=== PATIENT | male | born 1960 | race Caucasian/White ===

== ENCOUNTER 2017-09-19 10:46 | Emergency (ER) | payer OTHER ==
[~2017-09-19] VITALS: Ht 180.3 cm; Wt 66.4 kg
--- OUTSIDE RECORDS SUMMARY | ~2017-09-19 | XMS ---
Demographics + + + | Address | [address] | | | [address] | | | [place] [address] | + + + | Preferred Language | Unknown | + + + | Marital Status | Unknown | + + + | Restorationist Affiliation | Unknown | + + + | Race | Unknown | + + + | Ethnic Group | Unknown | + + + Author + + + | Author | [facility] | + + + | Organization | [facility] | + + + | Address | [address] | | | [place] [address] | + + + | Phone | | + + + Care Team Providers + + + + | Care Typecasting Machine Operator Name | Role | Phone | + + + + Unavailable | Unavailable | + + + + PROBLEMS +---------+ + + +--------+ + + | Type | Condition | ICD9-CM | [id number] | Onset | Condition | SNOMED | | | | Code | Code | Dates | Status | Code | +---------+ + + +--------+ + + | Problem | Poor oral | K08.8 | | | Active | [id number] | | | hygiene | | | | | | +---------+ + + +--------+ + + | Problem | Low back | | M54.5 | | Active | 903090856 | | | pain | | | | | | +---------+ + + +--------+ + + | Problem | Decreased | H91.93 | | | Active | 64586153 | | | hearing of | | | | | | | | both ears | | | | | | +---------+ + + +--------+ + + | Problem | Alcohol | F10.21 | | | Active | | | | dependence | | | | | | | | in | | | | | | | | remission | | | | | | +---------+ + + +--------+ + + | Problem | Tobacco | | Z72.0 | | Active | 860328202 | | | use | | | | | | +---------+ + + +--------+ + + | Problem | Depression | F32.9 | | | Active | 68081453 | | | , major | | | | | | +---------+ + + +--------+ + + | Problem | Lung | J85.2 | | | Active | 03225516 | | | abscess | | | | | | +---------+ + + +--------+ + + ALLERGIES Unknown Allergies SOCIAL HISTORY No smoking Hx information available PLAN OF CARE VITAL SIGNS MEDICATIONS Unknown Medications RESULTS No Results PROCEDURES No Known procedures IMMUNIZATIONS No Known Immunizations"
--- OUTSIDE RECORDS SUMMARY | ~2017-09-19 | XMS ---
Demographics + + + | Address | [address] | | | [place] [address] | + + + | Preferred Language | Unknown | + + + | Marital Status | Unknown | + + + | Samaritan Affiliation | Unknown | + + + | Race | Unknown | + + + | Ethnic Group | Unknown | + + + Author + + + | Author | [facility] | + + + | Organization | [facility] | + + + | Address | [address] | | | [place] [address] | + + + | Phone | | + + + Care Team Providers + + + + | Care Heel Varnisher Name | Role | Phone | + + + + Unavailable | Unavailable | + + + + PROBLEMS + + + + + + + + | Type | Condition | ICD9-CM | [id number] | Onset | Condition | SNOMED | | | | Code | Code | Dates | Status | Code | + + + + + + + + | Assessment | Lung | J85.2 | | 11 April, | Active | [id number] | | | abscess | | | 2017 | | | + + + + + + + + | Problem | Decreased | H91.93 | | | Active | 85337268 | | | hearing of | | | | | | | | both ears | | | | | | + + + + + + + + | Problem | Depression | F32.9 | | | Active | 75255303 | | | , major | | | | | | + + + + + + + + | Problem | Tobacco | | Z72.0 | | Active | 833255020 | | | use | | | | | | + + + + + + + + | Problem | Poor oral | K08.8 | | | Active | 408506794 | | | hygiene | | | | | | + + + + + + + + | Problem | Lung | J85.2 | | | Active | 98828788 | | | abscess | | | | | | + + + + + + + + | Problem | Alcohol | F10.21 | | | Active | | | | dependence | | | | | | | | in | | | | | | | | remission | | | | | | + + + + + + + + ALLERGIES Unknown Allergies SOCIAL HISTORY No smoking Hx information available PLAN OF CARE VITAL SIGNS MEDICATIONS Unknown Medications RESULTS No Results PROCEDURES No Known procedures IMMUNIZATIONS No Known Immunizations"
--- OUTSIDE RECORDS SUMMARY | ~2017-09-19 | XMS ---
Demographics + + + | Address | [address] | | | [address] | | | [place] [address] | + + + | Preferred Language | Unknown | + + + | Marital Status | Unknown | + + + | Presybeterian Affiliation | Unknown | + + + | Race | Unknown | + + + | Ethnic Group | Unknown | + + + Author + + + | Author | [facility] | + + + | Organization | [facility] | + + + | Address | [address] | | | [place] [address] | + + + | Phone | | + + + Care Team Providers + + + + | Care Mental Health Associate Name | Role | Phone | + + + + Unavailable | Unavailable | + + + + PROBLEMS + + + + + + + + | Type | Condition | ICD9-CM | [id number] | Onset | Condition | SNOMED | | | | Code | Code | Dates | Status | Code | + + + + + + + + | Problem | Poor oral | K08.8 | | | Active | [id number] | | | hygiene | | | | | | + + + + + + + + | Assessment | Lung | J85.2 | | 24 April, | Active | 35889770 | | | abscess | | | 2017 | | | + + + + + + + + | Problem | Low back | | M54.5 | | Active | 028225956 | | | pain | | | | | | + + + + + + + + | Problem | Decreased | H91.93 | | | Active | 51997959 | | | hearing of | | [...] | | Z72.0 | | Active | 750198950 | | | use | | | | | | + + + + + + + + | Problem | Depression | F32.9 | | | Active | 39449507 | | | , major | | | | | | + + + + + + + + | Problem | Lung | J85.2 | | | Active | 37213047 | | | abscess | | | | | | + + + + + + + + ALLERGIES + + + + +---------+ | Substance | Reaction | Event Type | Date | Status | + + + + +---------+ | N.K.Jose AlfredoA. | Unknown | Non Drug | April, | Unknown | | | | Allergy | | | + + + + +---------+ SOCIAL HISTORY No smoking Hx information available PLAN OF CARE VITAL SIGNS + + + + | Height | 77 in | 2017-04-24 | + + + + | Weight | 164.2 lbs | 2017-04-24 | + + + + | BMI | 19.47 kg/m2 | 2017-04-24 | + + + + | Temperature | 98.6 degrees Fahrenheit | 2017-04-24 | + + + + | Heart Rate | 96 /min | 2017-04-24 | + + + + | Blood pressure systolic | 127 mm Hg | 2017-04-24 | + + + + | Blood pressure diastolic | 72 mm Hg | 2017-04-24 | + + + + MEDICATIONS + + + + + + + +--------+ | Medicati | Instruct | Dosage | Frequenc | Start | End Date | Duration | Status | | on | ions | | y | Date | | | | + + + + + + + +--------+ | Centrum | Orally | 1 tablet | 24h | | | | Active | | - | Daily | | | | | | | + + + + + + + +--------+ | Nicotine | Transder | 1 patch | 24h | 24 April, | | | Active | | 21 | mal Once | to skin | | 2017 | | | | | MG/24HR | a day | | | | | | | + + + + + + + +--------+ | Augmenti | Orally | 1 tablet | 12h | | | | Active | | n 875 mg | Twice a | | | | | | | | | day | | | | | | | + + + + + + + +--------+ RESULTS No Results PROCEDURES + + + + + | Procedure | Date Ordered | Related Diagnosis | Body Site | + + + + + | Est Level III | April 24, 2017 | | | | Intermediate | | | | + + + + + IMMUNIZATIONS No Known Immunizations"
--- OUTSIDE RECORDS SUMMARY | ~2017-09-19 | XMS ---
Demographics + + + | Address | [address] | | | [address] | | | [place] [address] | + + + | Preferred Language | Unknown | + + + | Marital Status | Unknown | + + + | Mandaeism Affiliation | Unknown | + + + | Race | Unknown | + + + | Ethnic Group | Unknown | + + + Author + + + | Author | [facility] | + + + | Organization | [facility] | + + + | Address | [address] | | | [place] [address] | + + + | Phone | | + + + Care Team Providers + + + + | Care Forecast Analyst Name | Role | Phone | + + + + Unavailable | Unavailable | + + + + PROBLEMS +---------+ + + +--------+ + + | Type | Condition | ICD9-CM | [id number] | Onset | Condition | SNOMED | | | | Code | Code | Dates | Status | Code | +---------+ + + +--------+ + + | Problem | Poor oral | K08.8 | | | Active | [id number] | | | hygiene | | | | | | +---------+ + + +--------+ + + | Problem | Low back | | M54.5 | | Active | 441857215 | | | pain | | | | | | +---------+ + + +--------+ + + | Problem | Decreased | H91.93 | | | Active | 69056524 | | | hearing of | | | | | | | | both ears | | | | | | +---------+ + + +--------+ + + | Problem | Alcohol | F10.21 | | | Active | 188341042 | | | dependence | | | | | | | | in | | | | | | | | remission | | | | | | +---------+ + + +--------+ + + | Problem | Tobacco | | Z72.0 | | Active | 357604114 | | | use | | | | | | +---------+ + + +--------+ + + | Problem | Depression | F32.9 | | | Active | 33441244 | | | , major | | | | | | +---------+ + + +--------+ + + | Problem | Lung | J85.2 | | | Active | 84747353 | | | abscess | | | | | | +---------+ + + +--------+ + + ALLERGIES No Information SOCIAL HISTORY Never Assessed PLAN OF CARE + +---------+ | Activity | Details | + +---------+ +---+ | | +---+ + + + | Pending Test | CT Scan : Chest with IV Contrast | + + + VITAL SIGNS MEDICATIONS Unknown Medications RESULTS No Results PROCEDURES + + +--------+ + | Procedure | Date Ordered | Result | Body Site | + + +--------+ + | CT THORAX W/DYE | Aug 01, 2017 | | | + + +--------+ + IMMUNIZATIONS No Known Immunizations MEDICAL (GENERAL) HISTORY + + + + | Type | Description | Date | + + + + | Medical History | Alcoholism | | + + + + | Medical History | L ear hearing loss since | | | | 01/2011 | | + + + + | Surgical History | Rhinoplasty | 1975 | + + + + | Hospitalization History | Migueloscarmoris 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 IV | 03/22- | | | clindamycin therapy | | + + + + | Hospitalization History | [facility] Swing Bed Program: IV | 03/29/17 to 04/19/17 | | | clindamycin therapy | | | | completion | | + + + + | Hospitalization History | CT Scan of the chest: | 03/22/17 | | | Thickwalled 7.7 centimeter | | | | cavitary lesion arising | | | | from the superior segment | | | | of the left low, air-fluid | | | | level. Left paratracheal | | | | lymph node, reactive, mild | | | | enlargement | | + + + + | Hospitalization History | Ruled out active | 03/2017 | | | tuberculosis by 3 negative | | | | AFB smears. | | + + + + | Hospitalization History | T-Spot TB Negative | 03/27/2017 | + + + + | Hospitalization History | HIV 1 & 2: Negative | 03/22/2017 | + + + + | Hospitalization History | CT Scan of the chest: Left | 04/11/2017 | | | posterior upper lobe | | | | process is again noted. | | | | Much less rounded in | | | | appearance. Multiple foci | | | | of air. Size approximately | | | | 2/3 from previous and air | | | | bronchograms developing in | | | | it. No adenopathy. | | + + + +"
--- OUTSIDE RECORDS SUMMARY | ~2017-09-19 | XMS ---
Demographics + + + | Address | [address] | | | [address] | | | [place] [address] | + + + | Preferred Language | Unknown | + + + | Marital Status | Unknown | + + + | Lutheran Affiliation | Unknown | + + + | Race | Unknown | + + + | Ethnic Group | Unknown | + + + Author + + + | Author | [facility] | + + + | Organization | [facility] | + + + | Address | [address] | | | [place] [address] | + + + | Phone | | + + + Care Team Providers + + + + | Care Cane Piler Name | Role | Phone | + + + + Unavailable | Unavailable | + + + + PROBLEMS +---------+ + + +--------+ + + | Type | Condition | ICD9-CM | MKR35-HO | Onset | Condition | SNOMED | | | | Code | Code | Dates | Status | Code | +---------+ + + +--------+ + + | Problem | Poor oral | K08.8 | | | Active | [id number] | | | hygiene | | | | | | +---------+ + + +--------+ + + | Problem | Low back | | M54.5 | | Active | 511788406 | | | pain | | | | | | +---------+ + + +--------+ + + | Problem | Decreased | H91.93 | | | Active | 19565960 | | | hearing of | | | | | | | | both ears | | | | | | +---------+ + + +--------+ + + | Problem | Alcohol | F10.21 | | | Active | 450330701 | | | dependence | | | | | | | | in | | | | | | | | remission | | | | | | +---------+ + + +--------+ + + | Problem | Tobacco | | Z72.0 | | Active | 536485648 | | | use | | | | | | +---------+ + + +--------+ + + | Problem | Depression | F32.9 | | | Active | 91631944 | | | , major | | | | | | +---------+ + + +--------+ + + | Problem | Lung | J85.2 | | | Active | 02680567 | | | abscess | | | | | | +---------+ + + +--------+ + + ALLERGIES No Known Allergies SOCIAL HISTORY Never Assessed PLAN OF CARE + +---------+ | Activity | Details | + +---------+ +---+ | | +---+ + + + | Follow Up | 4 Weeks to, 6 Weeks Reason:null | + + + VITAL SIGNS + + + + | Height | 77 in | 2017-08-28 | + + + + | Weight | 155.0 lbs | 2017-08-28 | + + + + | BMI | 18.38 kg/m2 | 2017-08-28 | + + + + | Temperature | 99.6 degrees Fahrenheit | 2017-08-28 | + + + + | Heart Rate | 94 /min | 2017-08-28 | + + + + | Blood pressure systolic | 145 mm Hg | 2017-08-28 | + + + + | Blood pressure diastolic | 100 mm Hg | 2017-08-28 | + + + + MEDICATIONS + + + + +--------+ + +--------+ | Medicati | Instruct | Dosage | Frequenc | Start | End Date | Duration | Status | | on | ions | | y | Date | | | | + + + + +--------+ + +--------+ | Centrum | Orally | 1 tablet | 24h | | | | Active | | - | Daily | | | | | | | + + + + +--------+ + +--------+ RESULTS No Results PROCEDURES No Known procedures IMMUNIZATIONS No Known Immunizations MEDICAL (GENERAL) HISTORY [...] + + + | Hospitalization History | Rajan De Leon alcoholic | 02/07-02/13/11 | | | hepatitis [...]
--- OUTSIDE RECORDS SUMMARY | ~2017-09-19 | XMS ---
Demographics + + + | Address | [address] | | | [address] | | | [place] [address] | + + + | Preferred Language | Unknown | + + + | Marital Status | Unknown | + + + | Denominational Affiliation | Unknown | + + + | Race | Unknown | + + + | Ethnic Group | Unknown | + + + Author + + + | Author | [facility] | + + + | Organization | [facility] | + + + | Address | [address] | | | [place] [address] | + + + | Phone | | + + + Care Team Providers + + + + | Care Domestic Violence Counselor Name | Role | Phone | + + + + Unavailable | Unavailable | + + + + PROBLEMS +---------+ + + +--------+ + + | Type | Condition | ICD9-CM | BIO54-[id number] | Onset | Condition | SNOMED | | | | Code | Code | Dates | Status | Code | +---------+ + + +--------+ + + | Problem | Poor oral | K08.8 | | | Active | [id number] | | | hygiene | | | | | | +---------+ + + +--------+ + + | Problem | Low back | | M54.5 | | Active | 224851452 | | | pain | | | | | | +---------+ + + +--------+ + + | Problem | Decreased | H91.93 | | | Active | 31726752 | | | hearing of | | [...] | | Z72.0 | | Active | 778766623 | | | use | | | | | | +---------+ + + +--------+ + + | Problem | Depression | F32.9 | | | Active | 10940532 | | | , major | | | | | | +---------+ + + +--------+ + + | Problem | Lung | J85.2 | | | Active | 02534932 | | | abscess | | | | | | +---------+ + + +--------+ + + ALLERGIES Unknown Allergies SOCIAL HISTORY No smoking Hx information available PLAN OF CARE VITAL SIGNS MEDICATIONS Unknown Medications RESULTS No Results PROCEDURES No Known procedures IMMUNIZATIONS No Known Immunizations"
--- OUTSIDE RECORDS SUMMARY | ~2017-09-19 | XMS ---
Demographics + + + | Address | [address] | | | [address] | | | [place] [address] | + + + | Preferred Language | Unknown | + + + | Marital Status | Unknown | + + + | Anglican Affiliation | Unknown | + + + | Race | Unknown | + + + | Ethnic Group | Unknown | + + + Author + + + | Author | [facility] | + + + | Organization | [facility] | + + + | Address | [address] | | | [place] [address] | + + + | Phone | | + + + Care Team Providers + + + + | Care Online Media Buyer Name | Role | Phone | + + + + Unavailable | Unavailable | + + + + PROBLEMS +---------+ + + +--------+ + + | Type | Condition | ICD9-CM | [id number] | Onset | Condition | SNOMED | | | | Code | Code | Dates | Status | Code | +---------+ + + +--------+ + + | Problem | Poor oral | K08.8 | | | Active | 281559268 | | | hygiene | | | | | | +---------+ + + +--------+ + + | Problem | Low back | | M54.5 | | Active | 753815055 | | | pain | | | | | | +---------+ + + +--------+ + + | Problem | Decreased | H91.93 | | | Active | 05457883 | | | hearing of | | [...] | | Z72.0 | | Active | 414143550 | | | use | | | | | | +---------+ + + +--------+ + + | Problem | Depression | F32.9 | | | Active | 25866077 | | | , major | | | | | | +---------+ + + +--------+ + + | Problem | Lung | J85.2 | | | Active | 37775641 | | | abscess | | | | | | +---------+ + + +--------+ + + ALLERGIES + + + + +---------+ | Substance | Reaction | Event Type | Date | Status | + + + + +---------+ | N.K.D.A. | Unknown | Non Drug | 19 Jun, 2017 | Unknown | | | | Allergy | | | + + + + +---------+ SOCIAL HISTORY No smoking Hx information available PLAN OF CARE + +---------+ | Activity | Details | + +---------+ +---+ | | +---+ + + + | Follow Up | 3 Months Reason:null | + + + VITAL SIGNS + + + + | Height | 77 in | 2017-06-19 | + + + + | Weight | 166.4 lbs | 2017-06-19 | + + + + | BMI | 19.73 kg/m2 | 2017-06-19 | + + + + | Temperature | 98.8 degrees Fahrenheit | 2017-06-19 | + + + + | Heart Rate | 80 /min | 2017-06-19 | + + + + | Blood pressure systolic | 153 mm Hg | 2017-06-19 | + + + + | Blood pressure diastolic | 102 mm Hg | 2017-06-19 | + + + + MEDICATIONS Unknown Medications RESULTS + +--------+ + + | Name | Result | Date | Reference Range | + +--------+ + + | Sedimentation | | 2017-06-19 | | | Rate-Westergren | | | | + +--------+ + + | Sedimentation | | | | | Rate-Westergren | | | | + +--------+ + + | CRP | | 2017-06-19 | | + +--------+ + + | CRP | | | | + +--------+ + + | Comprehensive | | 2017-06-19 | | | Metabolic Panel | | | | + +--------+ + + | CBC with | | 2017-06-19 | | | Differential Count | | | | + +--------+ + + | Procalcitonin | | | | + +--------+ + + PROCEDURES + + + + + | Procedure | Date Ordered | Related Diagnosis | Body Site | + + + + + | Est Level III | June 19, 2017 | | | | Intermediate | | | | + + + + + IMMUNIZATIONS No Known Immunizations"
--- OUTSIDE RECORDS SUMMARY | ~2017-09-19 | XMS ---
Demographics + + + | Address | [address] | | | [place] [address] | + + + | Preferred Language | Unknown | + + + | Marital Status | Unknown | + + + | Congregation Affiliation | Unknown | + + + | Race | Unknown | + + + | Ethnic Group | Unknown | + + + Author + + + | Author | [facility] | + + + | Organization | [facility] | + + + | Address | [address] | | | [place] [address] | + + + | Phone | | + + + Care Team Providers + + + + | Care Train Operations Manager Name | Role | Phone | + + + + Unavailable | Unavailable | + + + + PROBLEMS + + + + + + + + | Type | Condition | ICD9-CM | RSU11-JT | Onset | Condition | SNOMED | | | | Code | Code | Dates | Status | Code | + + + + + + + + | Assessment | Screening | Z13.1 | | 05 April, | Active | [id number] | | | for | | | 2017 | | | | | diabetes | | | | | | | | mellitus | | | | | | + + + + + + + + | Assessment | Lung | J85.2 | | 05 April, | Active | 32987087 | | | abscess | | | 2016 | | | + + + + + + + + | Assessment | Screening | | Z13.220 | 05 April, | Active | 714069294 | | | cholestero | | | 2016 | | | | | l level | | | | | | + + + + + + + + | Assessment | Screening | Z13.29 | | 05 April, | Active | 108546029 | | | for | | | 2016 | | | | | hypothyroi | | | | | | | | dism | | | | | | + + + + + + + + | Problem | Decreased | H91.93 | | | Active | 16327860 | | | hearing of | | | | | | | | both ears | | | | | | + + + + + + + + | Problem | Depression | F32.9 | | | Active | 75003226 | | | , major | | | | | | + + + + + + + + | Problem | Tobacco | | Z72.0 | | Active | 437251422 | | | use | | | | | | + + + + + + + + | Problem | Poor oral | K08.8 | | | Active | 640957473 | | | hygiene | | | | | | + + + + + + + + | Problem | Lung | J85.2 | | | Active | 31240486 | | | abscess | | | [...] N.K.D.A. | Unknown | Non Drug | April, | Unknown | | | | Allergy | | | + + + + +---------+ SOCIAL HISTORY No smoking Hx information available PLAN OF CARE + +---------+ | Activity | Details | + +---------+ +---+ | | +---+ + + + | Pending Test | TSH+Free T4 | + + + | Pending Test | Comprehensive Metabolic Panel | + + + | Pending Test | Lipid Panel | + + + | Pending Test | Hemoglobin A1C Panel | + + + | Pending Test | Vitamin B12 and Folate | + + + | Pending Test | Vitamin B1 (Thiamine) | + + + | Pending Test | CBC with Differential Count | + + + | | 4 Weeks,Reason: | + + + VITAL SIGNS + + + + | Height | 77 in | 2017-04-05 | + + + + | Weight | 156.6 lbs | 2017-04-05 | + + + + | BMI | 18.57 kg/m2 | 2017-04-05 | + + + + | Temperature | 98.0 degrees Fahrenheit | 2017-04-05 | + + + + | Heart Rate | 95 /min | 2017-04-05 | + + + + | Blood pressure systolic | 134 mm Hg | 2017-04-05 | + + + + | Blood pressure diastolic | 89 mm Hg | 2017-04-05 | + + + + MEDICATIONS + + +--------+ +--------+ + +--------+ | Medicati | Instruct | Dosage | Frequenc | Start | End Date | Duration | Status | | on | ions | | y | Date | | | | + + +--------+ +--------+ + +--------+ | Clindamy | Intraven | 50 ml | 8h | | | | Active | | maximiliano | ous | | | | | | | | Phosphat | every 8 | | | | | | | | e in D5W | hrs | | | | | | | | 600 | | | | | | | | | MG/50ML | | | | | | | | + + +--------+ +--------+ + +--------+ RESULTS No Results PROCEDURES + + + + + | Procedure | Date Ordered | Related Diagnosis | Body Site | + + + + + | EST Pt. Level V | April 05, 2017 | | | | Comprehensive | | | | + + + + + | DSCHRG MED/CURRENT | April 05, 2017 | | | | MED MERGE | | | | + + + + + IMMUNIZATIONS No Known Immunizations"
--- OUTSIDE RECORDS SUMMARY | ~2017-09-19 | XMS ---
Demographics + + + | Address | [address] | | | [address] | | | [place] [address] | + + + | Preferred Language | Unknown | + + + | Marital Status | Unknown | + + + | Mu-Ism Affiliation | Unknown | + + + | Race | Unknown | + + + | Ethnic Group | Unknown | + + + Author + + + | Author | [facility] | + + + | Organization | [facility] | + + + | Address | [address] | | | [place] [address] | + + + | Phone | | + + + Care Team Providers + + + + | Care Radio Antenna Installer Name | Role | Phone | + + + + Unavailable | Unavailable | + + + + PROBLEMS +---------+ + + +--------+ + + | Type | Condition | ICD9-CM | [id number] | Onset | Condition | SNOMED | | | | Code | Code | Dates | Status | Code | +---------+ + + +--------+ + + | Problem | Poor oral | K08.8 | | | Active | [id number] | | | hygiene | | | | | | +---------+ + + +--------+ + + | Problem | Low back | | M54.5 | | Active | 762880690 | | | pain | | | | | | +---------+ + + +--------+ + + | Problem | Decreased | H91.93 | | | Active | 70814208 | | | hearing of | | [...] | | Z72.0 | | Active | 085718336 | | | use | | | | | | +---------+ + + +--------+ + + | Problem | Depression | F32.9 | | | Active | 07664763 | | | , major | | | | | | +---------+ + + +--------+ + + | Problem | Lung | J85.2 | | | Active | 84035937 | | | abscess | | | | | | +---------+ + + +--------+ + + ALLERGIES Unknown Allergies SOCIAL HISTORY No smoking Hx information available PLAN OF CARE VITAL SIGNS MEDICATIONS Unknown Medications RESULTS No Results PROCEDURES No Known procedures IMMUNIZATIONS No Known Immunizations"
--- OUTSIDE RECORDS SUMMARY | ~2017-09-19 | XMS ---
Demographics + + + | Address | [address] | | | [address] | | | [place] [address] | + + + | Preferred Language | Unknown | + + + | Marital Status | Unknown | + + + | Orthodox Affiliation | Unknown | + + + | Race | Unknown | + + + | Ethnic Group | Unknown | + + + Author + + + | Author | [facility] | + + + | Organization | [facility] | + + + | Address | [address] | | | [place] [address] | + + + | Phone | | + + + Care Team Providers + + + + | Care Machine Driller Name | Role | Phone | + + + + Unavailable | Unavailable | + + + + PROBLEMS +---------+ + + +--------+ + + | Type | Condition | ICD9-CM | EFD07-TE | Onset | Condition | SNOMED | | | | Code | Code | Dates | Status | Code | +---------+ + + +--------+ + + | Problem | Poor oral | K08.8 | | | Active | 730917876 | | | hygiene | | | | | | +---------+ + + +--------+ + + | Problem | Low back | | M54.5 | | Active | [id number] | | | pain | | | | | | +---------+ + + +--------+ + + | Problem | Decreased | H91.93 | | | Active | 53950076 | | | hearing of | | [...] | | Z72.0 | | Active | 087534879 | | | use | | | | | | +---------+ + + +--------+ + + | Problem | Depression | F32.9 | | | Active | 42087793 | | | , major | | | | | | +---------+ + + +--------+ + + | Problem | Lung | J85.2 | | | Active | 92744483 | | | abscess | | | | | | +---------+ + + +--------+ + + ALLERGIES Unknown Allergies SOCIAL HISTORY No smoking Hx information available PLAN OF CARE VITAL SIGNS MEDICATIONS Unknown Medications RESULTS No Results PROCEDURES No Known procedures IMMUNIZATIONS No Known Immunizations"
--- OUTSIDE RECORDS SUMMARY | ~2017-09-19 | XMS ---
Demographics + + + | Address | [address] | | | [address] | | | [place] [address] | + + + | Preferred Language | Unknown | + + + | Marital Status | Unknown | + + + | Yarsanism Affiliation | Unknown | + + + | Race | Unknown | + + + | Ethnic Group | Unknown | + + + Author + + + | Author | [facility] | + + + | Organization | [facility] | + + + | Address | [address] | | | [place] [address] | + + + | Phone | | + + + Care Team Providers + + + + | Care Construction Controller Name | Role | Phone | + + + + Unavailable | Unavailable | + + + + PROBLEMS +---------+ + + +--------+ + + | Type | Condition | ICD9-CM | LNR30-GD | Onset | Condition | SNOMED | | | | Code | Code | Dates | Status | Code | +---------+ + + +--------+ + + | Problem | Poor oral | K08.8 | | | Active | [id number] | | | hygiene | | | | | | +---------+ + + +--------+ + + | Problem | Low back | | M54.5 | | Active | 655985990 | | | pain | | | | | | +---------+ + + +--------+ + + | Problem | Decreased | H91.93 | | | Active | 74706817 | | | hearing of | | | | | | | | both ears | | | | | | +---------+ + + +--------+ + + | Problem | Alcohol | F10.21 | | | Active | 660681557 | | | dependence | | | | | | | | in | | | | | | | | remission | | | | | | +---------+ + + +--------+ + + | Problem | Tobacco | | Z72.0 | | Active | 639406827 | | | use | | | | | | +---------+ + + +--------+ + + | Problem | Depression | F32.9 | | | Active | 08067606 | | | , major | | | | | | +---------+ + + +--------+ + + | Problem | Lung | J85.2 | | | Active | 62038786 | | | abscess | | | | | | +---------+ + + +--------+ + + ALLERGIES No Information SOCIAL HISTORY Never Assessed PLAN OF CARE VITAL SIGNS MEDICATIONS Unknown [...] + | Surgical History | Rhinoplasty | 1976 | + + + + | Hospitalization History | [facility], alcoholic | 02/07-02/13/11 | | | hepatitis [...]
--- OUTSIDE RECORDS SUMMARY | ~2017-09-19 | XMS ---
Demographics + + + | Address | [address] | | | [address] | | | [place] [address] | + + + | Preferred Language [...] | + + + | Organization | [facility] | + + + | Address | [address] | | | [place] [address] | + + + | Phone | | + + + Care Team Providers + + + + | Care Metal Worker Name | Role | Phone | + + + + Unavailable | Unavailable | + + + + PROBLEMS +---------+ + + +--------+ + + | Type | Condition | ICD9-CM | ROG11-XD | Onset | Condition | SNOMED | | | | Code | Code | Dates | Status | Code | +---------+ + + +--------+ + + | Problem | Poor oral | K08.8 | | | Active | [id number] | | | hygiene | | | | | | +---------+ + + +--------+ + + | Problem | Low back | | M54.5 | | Active | 685434520 | | | pain | | | | | | +---------+ + + +--------+ + + | Problem | Decreased | H91.93 | | | Active | 55110346 | | | hearing of | | | | | | | | both ears | | | | | | +---------+ + + +--------+ + + | Problem | Alcohol | F10.21 | | | Active | 005442921 | | | dependence | | | | | | | | in | | | | | | | | remission | | | | | | +---------+ + + +--------+ + + | Problem | Tobacco | | Z72.0 | | Active | 587733683 | | | use | | | | | | +---------+ + + +--------+ + + | Problem | Depression | F32.9 | | | Active | 87597783 | | | , major | | | | | | +---------+ + + +--------+ + + | Problem | Lung | J85.2 | | | Active | 42515792 | | | abscess | | | [...]
[~2017-09-19 10:46] MED LIST: ALEVE220 MG PO; AUGMENTIN 875-1 EACH PO; CENTRUM SILVER1 EAC3 PO; NORCO 5-325 TA1 EACH PO
[2017-09-20] MEDS ORDERED: KEFLEX500 MG PO (22:52)
== END 2017-09-19 11:53 | disposition home or self-care (01) ==
LOC: ED 10:46
DX: Z00.8 Encounter for other general examination (principal)

== ENCOUNTER 2017-09-20 22:40 | Emergency (ER) | payer OTHER ==
[~2017-09-20] VITALS: Ht 180.3 cm; Wt 74.8 kg
[2017-09-20] MEDS ORDERED: KEFLEX500 MG PO (22:52)
== END 2017-09-20 23:21 | disposition home or self-care (01) ==
LOC: ED 22:40
DX: S21.211A Laceration without foreign body of right back wall of thorax without penetration into thoracic cavity, initial encounter (principal); S40.811A Abrasion of right upper arm, initial encounter; F17.200 Nicotine dependence, unspecified, uncomplicated; Z79.899 Other long term (current) drug therapy; W18.30XA Fall on same level, unspecified, initial encounter
CPT/HCPCS: 90471; 90715; 99282

== ENCOUNTER 2017-09-24 13:45 | Emergency (ER) | payer OTHER ==
[~2017-09-24] VITALS: Ht 180.3 cm; Wt 74.8 kg
[~2017-09-24 13:45] MED LIST changes: +KEFLEX500 MG PO
== END 2017-09-24 14:11 | disposition home or self-care (01) ==
LOC: ED 13:45
DX: Z00.8 Encounter for other general examination (principal)

== ENCOUNTER 2019-04-04 19:33 | Emergency (ER) | payer OTHER ==
[~2019-04-04] VITALS: Ht 180.3 cm; Wt 75.0 kg
--- OUTSIDE RECORDS SUMMARY | ~2019-04-04 | XMS | Clinical Summary ---
Demographics + + + | Address | [address] | | | [place] [address] | + + + | Home Phone | | + + + | Preferred Language | Unknown | + + + | Marital Status | Unknown | + + + | Gnosticism Affiliation | Unknown | + + + | Race | Unknown | + + + | Ethnic Group | Unknown | + + + Author + + + | Author | [facility] | + + + | Organization | [facility] | + + + | Address | Unknown | + + + | Phone | Unavailable | + + + Support + + +---------+ + | Name | Relationship | Address | Phone | + + +---------+ + | No,Contact | ECON | Unknown | | + + +---------+ + Care Team Providers + +------+ + | Care Field Geologist Name | Role | Phone | + [...] Vaccine: Influenza | | | | | (Season Ended) | 9 | | | + + [...] +------+-------+ + | MEDICAID | MEDICA | [id number] | | | [address] | | | ID | | | | [place], [place] | | | [place] | | | | [address] | + +--------+ +------+-------+ + + +--------+ [...] | | iliana/Adam | | 1959 | [phone] | [address] [place] | | | [place] | | | [phone]: | [phone] | | | | | | | | | | | | | [phone] | | | | | | | [phone] | | + +--------+ +--------+ + +"
--- OUTSIDE RECORDS SUMMARY | ~2019-04-04 | XMS | Clinical Summary ---
Demographics + + + | Address | [address] | | | [place] [address] | + + + | Home Phone | | + + + | Preferred Language | Unknown | + + + | Marital Status | Unknown | + + + | Amish Affiliation | Unknown | + + + | Race | Unknown | + + + | Ethnic Group | Unknown | + + + Author + + + | Author | [facility] | + + + | Organization | [facility] [employer] [facility] | + + + | Address | Unknown | + + + | Phone | Unavailable | + + + Support + + +---------+ + | Name | Relationship | Address | Phone | + + +---------+ + | No,Contact | ECON | Unknown | | + + +---------+ + Care Team Providers + +------+ + | Care Chief School Finance Officer Name | Role | Phone | + [...] +------+-------+ + | MEDICAID | MEDICA | [id number] | | | [address] | | | ID | | | | [place], [place] | | | [place] | | | | [address] | + +--------+ +------+-------+ + + +--------+ [...] | | iliana/Adam | | 1959 | [phone] | [address] [place] | | | [place] | | | [phone]: | [address] | | | | | | | | | | | | | [phone] | | | | | | | [phone] | | + +--------+ +--------+ + +"
--- OUTSIDE RECORDS SUMMARY | 2019-04-04 19:36 | XMS ---
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 ELigia VISIT COUNT (12 MO.) 1 VALORIE Butler TOTAL 1 NOTE: Visits indicate total known visits. ED/UCC VISIT TRACKING (12 MO.) 04/04/2019 19:34 VALORIE Michelle [place] TYPE: Emergency COMPLAINT: - FALL/R SHOULDER INJURY INPATIENT VISIT TRACKING (12 MO.) No inpatient visits to display in this time frame [email or web address]
== END 2019-04-04 22:16 | disposition home or self-care (01) ==
LOC: ED 19:33
PROC: 0RSJXZZ Reposition Right Shoulder Joint, External Approach (ICD-10-PCS; principal; 2019-04-04)
DX: S43.014A Anterior dislocation of right humerus, initial encounter (principal); S80.211A Abrasion, right knee, initial encounter; F10.129 Alcohol abuse with intoxication, unspecified; F17.200 Nicotine dependence, unspecified, uncomplicated; W01.0XXA Fall on same level from slipping, tripping and stumbling without subsequent striking against object, initial encounter
CPT/HCPCS: 23650; 73030; 73080; 73110; 99283-25

== ENCOUNTER 2019-08-30 06:45 | Emergency (ER) | payer OTHER ==
[~2019-08-30] VITALS: Ht 180.3 cm; Wt 74.8 kg
--- OUTSIDE RECORDS SUMMARY | ~2019-08-30 | XMS | Clinical Summary ---
Demographics + + + | Address | [address] | | | [place] [address] | + + + | Home Phone | | + + + | Preferred Language | Unknown | + + + | Marital Status | Unknown | + + + | Judaism Affiliation | Unknown | + + + | Race | Unknown | + + + | Ethnic Group | Unknown | + + + Author + + + | Author | [facility] (Historical as of | | | 07-18-19) | + + + | Organization | [facility] (Historical as of | | | 07-18-19) [...] Team Providers + +------+ + | Care Fertilizer Loader Name | Role | Phone | + [...] +------+-------+ + | MEDICAID | MEDICA | [id number] | | | [address] | | | [place] | | | | [place] | | | [place] | | | | [address] | + +--------+ +------+-------+ + + +--------+ [...] | | iliana/Adam | | 1959 | [phone]- | [address] [place] | | | [place] | | | [phone]: | [phone] | | | | | | | | | | | | | [phone] | | | | | | | [phone] | | + +--------+ +--------+ + +"
--- OUTSIDE RECORDS SUMMARY | ~2019-08-30 | XMS | Clinical Summary ---
Demographics + + + | Address | [address] | | | [place] [address] | + + + | Home Phone | | + + + | Preferred Language | Unknown | + + + | Marital Status | Unknown | + + + | Episcopal Affiliation | Unknown | + + + | Race | Unknown | + + + | Ethnic Group | Unknown | + + + Author + + + | Author | [facility] | | | and [place] | + + + | Organization | [facility] | | | and [...] Team Providers + +------+ + | Care Director Of Strategic Partnerships Name | Role | Phone | + [...]
--- OUTSIDE RECORDS SUMMARY | ~2019-08-30 | XMS | Clinical Summary ---
Demographics + + + | Address | [address] | | | [place] [address] | + + + | Home Phone | | + + + | Preferred Language | Unknown | + + + | Marital Status | Unknown | + + + | Anabaptism Affiliation | Unknown | + + + | Race | Unknown | + + + | Ethnic Group | Unknown | + + + Author + + + | Author | [facility] (Historical as of | | | 07-18-19) | + + + | Organization | [facility] (Historical as of | | | 07-18-19) [...] Team Providers + +------+ + | Care Licensed Loan Officer Assistant Name | Role | Phone | + [...] +------+-------+ + | MEDICAID | MEDICA | [id number] | | | [address] | | | ID | | | | [place] | | | [place] | | | | [address] | + +--------+ +------+-------+ + + +--------+ [...] | | iliana/Adam | | 1959 | [phone]- | [address] [place] | | | [place] | | | [phone]: | [phone] | | | | | | | | | | | | | [phone] | | | | | | | [phone] | | + +--------+ +--------+ + +"
--- OUTSIDE RECORDS SUMMARY | ~2019-08-30 | XMS | Clinical Summary ---
Demographics + + + | Address | [address] | | | [place] [address] | + + + | Home Phone | | + + + | Preferred Language | Unknown | + + + | Marital Status | Unknown | + + + | Temple Affiliation | Unknown | + + + | Race | Unknown | + + + | Ethnic Group | Unknown | + + + Author + + + | Author | [facility] | | | and [place] | + + + | Organization | [facility] | | [...] Team Providers + +------+ + | Care Tower Loader Operator Name | Role | Phone | [...]
--- OUTSIDE RECORDS SUMMARY | 2019-08-30 06:48 | XMS ---
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 Care History Medical/Surgical 04/06/2019 [facility] - Patient is currently established with [facility]. If patient is seen in the ED during business hours. Please contact CHWs at [facility]. Care Recommendation: This patient has had 5 or more Emergency Department visits in the last 12 months.\T\nbsp; Patient requires education on the scope and purpose of the ED as an acute care provider not a Primary Care Provider and should not be utilized for chronic conditions.\T\nbsp; These are guidelines and the provider should exercise clinical judgment when providing care. E.D. VISIT COUNT (12 MO.) 3 VALORIE Butler TOTAL 3 NOTE: Visits indicate total known visits. ED/UCC VISIT TRACKING (12 MO.) 08/30/2019 06:46 VALORIE Michelle [place] TYPE: Emergency COMPLAINT: - MULTIPLE COMPLAINTS 08/28/2019 16:12 VALORIE Michelle [place] TYPE: Emergency COMPLAINT: - BACK PAIN, COUGH 04/04/2019 19:34 VALORIE Michelle [place] TYPE: Emergency COMPLAINT: - FALL/R SHOULDER INJURY DIAGNOSES: - Nicotine dependence, unspecified, uncomplicated - Anterior dislocation of right humerus, initial encounter - Alcohol abuse with intoxication, unspecified - Pain in right shoulder - Fall on same level from slipping, tripping and stumbling without subsequent striking against object, initial encounter - Abrasion, right knee, initial encounter INPATIENT VISIT TRACKING (12 MO.) No inpatient visits to display in this time frame [email or web address]
== END 2019-08-30 09:11 | disposition home or self-care (01) ==
LOC: ED 06:45
DX: R52 Pain, unspecified (principal); Z59.0 Homelessness; F17.200 Nicotine dependence, unspecified, uncomplicated
CPT/HCPCS: 80048; 85025; 99283; G0480

== ENCOUNTER 2019-08-30 10:03 | Emergency (ER) | payer OTHER ==
[~2019-08-30] VITALS: Ht 180.3 cm; Wt 75.0 kg
--- OUTSIDE RECORDS SUMMARY | ~2019-08-30 | XMS | Clinical Summary ---
Demographics + + + | Address | [address] | | | [place] [address] | + + + | Home Phone | | + + + | Preferred Language | Unknown | + + + | Marital Status | Unknown | + + + | Sabianism Affiliation | Unknown | + + + | Race | Unknown | + + + | Ethnic Group | Unknown | + + + Author + + + | Author | [facility] (Historical as of | | | 07-18-19) | + + + | Organization | [facility] (Historical as of | | | 07-18-19) | + + + | Address | Unknown | + + + | Phone | Unavailable | + + + Support + + +---------+ + | Name | Relationship | Address | Phone | + + +---------+ + | No,Contact | ECON | Unknown | | + + +---------+ + Care Team Providers + +------+ + | Care Take Down Inspector Name | Role | Phone | + +------+ + | Sourav Begum MD | PP | Unavailable | + +------+ + Allergies Not on File Current Medications + + +-------+---------+------+------+-------+ | Prescription | Sig. | Disp. | Refills | Star | End | Statu | | | | | | t | Date | s | | | | | | Date | | | + + +-------+---------+------+------+-------+ | CLINDAMYCIN | Clindamycin | | | | | Activ | | PHOSPHATE IV | phosphate in D5W 600 | | | | | e | | | MG/ML solution 50 | | | | | | | | ml every 8 hrs | | | | | | + + +-------+---------+------+------+-------+ Active Problems Not on file Family History + + +------+ + | Medical History | Relation | Name | Comments | + + +------+ + | ADD / ADHD | Father | | | + + +------+ + + +------+ + + | Relation | Name | Status | Comments | + +------+ + + | Father | | | | + +------+ + + | Mother | | | | + +------+ + + Social History + +-------+ +--------+------+ | Tobacco Use | Types | Packs/Day | Years | Date | | | | | Used | | + +-------+ +--------+------+ | Current Every Day | | | | | | Smoker | | | | | + +-------+ +--------+------+ + + +---------+ + | Alcohol Use | Drinks/We | oz/Week | Comments | | | ek | | | + + +---------+ + | Yes | | | Usually drinks x2 40 oz beers | + + +---------+ + + + + | Sex Assigned at | Date Recorded | | | | + + + | Not on file | | + + + Plan of Treatment + + + + + | Health Maintenance | Due Date | Last Done | Comments | + + + + + | Vaccine: | | | | | Dtap/Tdap/Td (1 - | 8 | | | | Tdap) | | | | + + + + + | Vaccine: Zoster (1 | | | | | of 2) | 9 | | | + + + + + | Vaccine: Influenza | | | | | (#1) | 9 | | | + + + + + Results Not on filefrom Last 3 Months Insurance + +--------+ +------+-------+ + | Payer | Benefi | Subscriber | Type | Phone | Address | | | t Plan | ID | | | | | | / | | | | | | | Group | | | | | + +--------+ +------+-------+ + | MEDICAID | MEDICA | [id number] | | | [address] | | | ID | | | | [place] | | | [place] | | | | [phone] | + +--------+ +------+-------+ + + +--------+ +--------+ + + | Guarantor Name | Accoun | Relation to | Date | Phone | Billing Address | | | t Type | Patient | of | | | | | | | | | | + +--------+ +--------+ + + | MARIO MCNEAL | Person | Self | [birth year] | Work: | [address] | | | [place] | | 1959 | [phone] | [address] [place] | | | [place] | | | [phone]: | [phone] | | | | | | | | | | | | | [phone] | | | | | | | [phone] | | + +--------+ +--------+ + +"
--- OUTSIDE RECORDS SUMMARY | ~2019-08-30 | XMS | Clinical Summary ---
Demographics + + + | Address | [address] | | | [place] [address] | + + + | Home Phone | | + + + | Preferred Language | Unknown | + + + | Marital Status | Unknown | + + + | Amish Affiliation | Unknown | + + + | Race | Unknown | + + + | Ethnic Group | Unknown | + + + Author + + + | Author | [facility] (Historical as of | | | 07-18-19) | + + + | Organization | [facility] (Historical as of | | | 07-18-19) [...] Team Providers + +------+ + | Care Chlorobutadiene Scrubber Operator Name | Role | Phone | [...] +------+-------+ + | MEDICAID | MEDICA | [id number] | | | [address] | | | [place] | | | | [place] | | | [place] | | | | [address] | + +--------+ +------+-------+ + + +--------+ [...] | | iliana/Adam | | 1959 | [phone]- | [address] [place] | | | [place] | | | [address]: | [address] | | | | | | | | | | | | | [phone] | | | | | | | [phone] | | + +--------+ +--------+ + +"
--- OUTSIDE RECORDS SUMMARY | ~2019-08-30 | XMS | Clinical Summary ---
Demographics + + + | Address | [address] | | | [place] [address] | + + + | Home Phone | | + + + | Preferred Language | Unknown | + + + | Marital Status | Unknown | + + + | Oriental Orthodox Affiliation | Unknown | + + + | Race | Unknown | + + + | Ethnic Group | Unknown | + + + Author + + + | Author | [facility] | | | and [place] | + + + | Organization | [facility] | | | and [place] | + + + | Address | Unknown | + + + | Phone | Unavailable | + + + Support + + +---------+ + | Name | Relationship | Address | Phone | + + +---------+ + | No,Contact | ECON | Unknown | | + + +---------+ + Care Team Providers + +------+ + | Care Heavy Truck Driver Name | Role | Phone | + +------+ + | Sourav Begum MD | PCP | | + +------+ + Allergies Not on File Medications Not on file Active Problems Not on file Family History + + +------+ + | Medical History | Relation | Name | Comments | + + +------+ + | ADD/ADHD | Father | | | + + +------+ + + +------+ + + | Relation | Name | Status | Comments | + +------+ + + | Father | | | | + +------+ + + | Father [...] | | + +-------+ +--------+------+ + + + | Sex Assigned at | Date Recorded | | | | + + + | Not on file | | + + + + + + + | Job Start Date | Occupation | Industry | + + + + | Not on file | Not on file | Not on file | + + + + + + + + | Travel History | Travel Start | Travel End | + + + + + + | No recent travel history available. | + + Last Filed Vital Signs Not on file Plan of Treatment + + + + [...] + Results Not on filefrom Last 3 Months"
--- OUTSIDE RECORDS SUMMARY | ~2019-08-30 | XMS | Clinical Summary ---
Demographics + + + | Address | [address] | | | [place] [address] | + + + | Home Phone | | + + + | Preferred Language | Unknown | + + + | Marital Status | Unknown | + + + | Protestant Affiliation | Unknown | + + + | Race | Unknown | + + + | Ethnic Group | Unknown | + + + Author + + + | Author | [facility] | | | and [place] | + + + | Organization | [facility] | | | [...] Team Providers + +------+ + | Care Glued Wood Tester Name | Role | Phone | + [...]
--- OUTSIDE RECORDS SUMMARY | 2019-08-30 10:06 | XMS ---
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 - Has Care Guidelines - [facility] - 2 Visits in 30 Days CARE PROVIDERS IZABELA SACNHEZ Internal Medicine 04/06/2019-Current [facility] PHONE: [phone] DR IZABELA SANCHEZ Primary Care 04/05/2017-Current PHONE: [phone] Constantin has no Care Guidelines for this patient. Care History Medical/Surgical 04/06/2019 [facility] - Patient is currently established with [facility]. If patient is seen in the ED during business hours. Please contact CHWs at [facility]. Care Recommendation: This patient has had 5 [...] providing care. E.D. VISIT COUNT (12 MO.) 4 VALORIE Butler TOTAL 4 NOTE: Visits indicate total known visits. ED/UCC VISIT TRACKING (12 MO.) 08/30/2019 10:04 VALORIE Michelle [place] TYPE: Emergency COMPLAINT: - SUICIDAL 08/30/2019 06:46 VALORIE Michelle [place] TYPE: Emergency [...] visits to display in this time frame [email or web address]
== END 2019-08-30 21:47 | disposition home or self-care (01) ==
LOC: ED 10:03
DX: F32.9 Major depressive disorder, single episode, unspecified (principal); Z59.0 Homelessness; F17.200 Nicotine dependence, unspecified, uncomplicated
CPT/HCPCS: 80053; 80176; 81001; 85025; 99284; G0480